=== PATIENT | male | born 1950 | race Caucasian/White ===

== ENCOUNTER 2016-08-06 12:39 | Emergency (ER) | payer MEDICARE, MEDICAID ==
[~2016-08-06] VITALS: Ht 190.5 cm; Wt 120.2 kg
[2016-08-06 14:58] VITALS: BP 143/90
== END 2016-08-06 15:16 | disposition home or self-care (01) ==
LOC: ER 12:39
DX: N48.1 Balanitis (principal); E11.9 Type 2 diabetes mellitus without complications; I10 Essential (primary) hypertension

== ENCOUNTER 2016-09-11 19:55 | Emergency (ER) | payer MEDICARE, MEDICAID ==
[~2016-09-11] VITALS: Ht 190.5 cm; Wt 122.5 kg
[2016-09-11] MEDS ORDERED: cefTRIAXone W LIDOCAINE 750MG IM IM ONE (23:30)
[2016-09-11] MEDS ORDERED: methylPREDNISolone SOD SUCC 125 MG/2 ML VL IM ONE (23:30)
[2016-09-11] MEDS ORDERED: cefTRIAXone SOD 1,000 MG VL ONE (23:39)
[2016-09-12 00:03] VITALS: BP 136/74
== END 2016-09-12 00:06 | disposition home or self-care (01) ==
LOC: ER 19:58
DX: L03.116 Cellulitis of left lower limb (principal); L03.115 Cellulitis of right lower limb; E11.9 Type 2 diabetes mellitus without complications; I10 Essential (primary) hypertension
CPT/HCPCS: 96372; 99284; J0696; J2930

== ENCOUNTER 2017-05-07 21:08 | Emergency (ER) | payer MEDICAID, MEDICARE, OTHER ==
[~2017-05-07] VITALS: Ht 190.5 cm; Wt 122.5 kg
[2017-05-07 22:58] VITALS: BP 150/90
== END 2017-05-07 22:47 | disposition home or self-care (01) ==
LOC: ER 21:08
DX: E11.9 Type 2 diabetes mellitus without complications (principal); I10 Essential (primary) hypertension; Z76.0 Encounter for issue of repeat prescription

== ENCOUNTER 2017-09-10 20:07 | Emergency (ER) | payer SELFPAY ==
[~2017-09-10] VITALS: Ht 182.9 cm; Wt 90.7 kg
[2017-09-10 21:04] VITALS: BP 131/76
== END 2017-09-10 21:38 | disposition home or self-care (01) ==
LOC: ER 20:07
DX: E11.9 Type 2 diabetes mellitus without complications (principal); I10 Essential (primary) hypertension; Z76.0 Encounter for issue of repeat prescription

== ENCOUNTER 2017-12-06 18:25 | Emergency (ER) | payer MEDICARE, OTHER ==
[~2017-12-06] VITALS: Ht 190.5 cm; Wt 117.9 kg
[2017-12-06 21:35] LABS: Basophils # (auto) 0 uL; Basophils % (auto) 0.6 % (0.0-2.0); Eosinophils # (auto) 0.3 uL; Eosinophils % (auto) 4.3 % (0.0-7.0); Hematocrit 42.7 % (41.0-53.0); Hemoglobin 14.6 g/dL (13.5-17.5); Lymphocytes # (auto) 1.5 uL; Mean Corpuscular Hemoglobin 29.2 pg (28.0-32.0); Mean Corpuscular Hgb Conc. 34.2 g/dL (32.0-36.0); Mean Corpuscular Volume 85.5 fL (80.0-100.0); Monocytes # (auto) 0.5 uL; Monocytes % (auto) 7.8 % (0.0-12.0); Neutrophils # (auto) 4.6 uL; Neutrophils % (auto) 65.3 % (37.0-80.0); Nucleated Red Blood Cells % 0.1 %; Platelet Count (auto) 181 10^3/uL (140-450); Red Blood Cells 4.99 10^6/uL (4.5-5.90); Red Cell Distribution Width 14.2 % (11.8-14.3)
[2017-12-06 21:51] LABS: Albumin 3.7 g/dL (3.4-5.0); Anion Gap 7 (5-15); Blood Urea Nitrogen 21 mg/dL (7-18); Calcium 9.3 mg/dL (8.5-10.1); Carbon Dioxide 31 mmol/L (21-32); Chloride 101 mmol/L (98-107); Glucose 79 mg/dL (74-106); Potassium 3.7 mmol/L (3.5-5.1); Sodium 139 mmol/L (136-145)
[2017-12-06 21:53] LABS: Alanine Aminotransferase 32 U/L (16-61); Aspartate Aminotransferase 15 U/L (15-37); BUN/Creatinine Ratio 18.1; GFR African American 81 mL/min; GFR Non-African American 67 mL/min
[2017-12-06 21:59] LABS: Alkaline Phosphatase 72 U/L (45-117); Bilirubin, Total 0.4 mg/dL (0.2-1.0); Total Protein 7.6 g/dL (6.4-8.2)
[2017-12-07 00:37] LABS: Urine Bacteria NONE SEEN /hpf (None Seen); Urine Blood Negative /uL (Negative); Urine Specific Gravity 1.013 (1.001-1.035); Urine WBC <1 /hpf (0 - 3)
[2017-12-07 02:29] VITALS: BP 142/90
== END 2017-12-07 04:15 | disposition home or self-care (01) ==
LOC: ER 18:25
DX: R60.9 Edema, unspecified (principal); E11.9 Type 2 diabetes mellitus without complications; I10 Essential (primary) hypertension
CPT/HCPCS: 36415; 71046; 80053; 81001; 83735; 83880; 84484; 85025; 93005

== ENCOUNTER 2023-11-26 13:54 | Emergency (ER) | payer OTHER, MEDICAID ==
[~2023-11-26] VITALS: Ht 190.5 cm; Wt 114.5 kg
[2023-11-26 14:34] VITALS: BP 141/87; PULSE 78; RESP 17; TEMP 97.3; O2SAT 96
[2023-11-26] MEDS ORDERED: CLIN1CAP70 PO (14:41)
[2023-11-26] MEDS: cefTRIAXone SOD 1,000 MG VL IM ONE (14:42)
== END 2023-11-26 14:49 | disposition home or self-care (01) ==
LOC: ER 13:54
DX: K04.7 Periapical abscess without sinus (principal); E11.9 Type 2 diabetes mellitus without complications; I10 Essential (primary) hypertension
CPT/HCPCS: 96372; 99283; J0696